=== PATIENT | female | born 1985 | race Caucasian/White ===

== ENCOUNTER 2022-02-21 11:09 | Inpatient (IN) | payer OTHER ==
[2022-02-21] VITALS (10 sets, daily range): BP systolic 121–155; BP diastolic 69–91; PULSE 74–107; TEMP 97.8–98.2
[~2022-02-21] VITALS: Ht 172.7 cm; Wt 105.5 kg
[2022-02-21] MEDS ORDERED: OMEGA-3 1000 MG1 CAP PO (11:31)
[2022-02-21] MEDS ORDERED: PRENATAL TABLET PO (11:31)
[2022-02-21] MEDS ORDERED: ZOLOFT 25MG25 MG PO (11:31)
[2022-02-21] MEDS ORDERED: STOOL SOFTENER100 M2 PO (11:32)
[2022-02-21 12:23] LABS: BASO % 0.3 % (0.0-2.0); EOS # 0.1 K/mm3 (0.0-0.7); GRAN # 10.6 K/mm3 (1.4-6.5); HEMATOCRIT 37.4 % (37.0-47.0); HEMOGLOBIN 12.5 g/dl (12.5-16.0); LYMPH # 1.9 K/mm3 (1.2-3.4); LYMPH % 14.3 % (20.0-51.0); MEAN CELL VOLUME 84 fl (80.0-100.0); MEAN CORPUSCULAR HEMOGLOBIN 28 pg (27-31); MEAN CORPUSCULAR HGB CONC 33 g/dl (33.0-37.0); MONO # 0.7 K/mm3 (0.1-0.6); MONO % 5.4 % (1.7-9.3); PLATELET COUNT 313 K/mm3 (130-400); RED BLOOD COUNT 4.47 M/mm3 (4.10-5.30); REDCELL DISTRIBUTION WIDTH-CV 13.9 % (11.5-14.5)
--- NOTE | 2022-02-21 13:18 | NUR ---
1215 MOVED PT TO LDR 2, PT STTOD AT BEDSISE AND VOICED FEELING MORE PRESSURE SVE AT 1220 AND NOTED 9 AND 0 STTION'DR FUENTES IS IN HOUSE AT NURSES STATION AND AWARE OF PT STATUS
--- NOTE | 2022-02-21 13:20 | NUR ---
SROM THIN MEC NOTED PT IN HANDS AND KNEES AND PUSHING GINA TO ROOM NURSERY TO ROOM [address] FUENTES IN SIDE LYING POSITION 1241 [place] PER GINA WITH 1ST DEGREE LACERATION REPAIRED PER DR FUENTES
--- NOTE | 2022-02-21 14:07 | NUR ---
1130 pt present to l/d with c/o UC since 0800, spouse with pt, denies SROM or bloody show desires low intervention dr garcía was in house and notified, he discussed POC with pt at bedside NST done and reactive, pt off EFM and up to walk, INT placed
[2022-02-22 04:10] VITALS: BP 115/76; PULSE 85; TEMP 98.1
[2022-02-22 08:34] VITALS: BP 134/80; PULSE 77; TEMP 98.7
[2022-02-22] MEDS ORDERED: IBU800 M1 PO (09:47)
[2022-02-22 17:30] VITALS: BP 112/66; PULSE 75; TEMP 97.9
[2022-02-22 19:00] VITALS: BP 131/69; PULSE 71; TEMP 97.8
== END 2022-02-23 15:15 | disposition home or self-care (01) | DRG 807 ==
LOC: LDRO 11:09 → LDR 11:45 → OB 16:32
PROVIDERS: Obstetrics & Gynecology; ADMIT Obstetrics & Gynecology
PROC: 10E0XZZ Delivery of Products of Conception, External Approach (ICD-10-PCS; principal; 2022-02-21)
PROC: 0HQ9XZZ Repair Perineum Skin, External Approach (ICD-10-PCS; 2022-02-21)
DX: O99.344 Other mental disorders complicating childbirth (principal); Z37.0 Single live birth; O70.0 First degree perineal laceration during delivery; O77.0 Labor and delivery complicated by meconium in amniotic fluid; F41.9 Anxiety disorder, unspecified; Z3A.39 39 weeks gestation of pregnancy; Z86.16 Personal history of COVID-19
CPT/HCPCS: J2590

== ENCOUNTER → 2022-02-26 | Outpatient (CLI) | payer OTHER ==
[~2022-02-26] MED LIST: IBU800 M1 PO; OMEGA-3 1000 MG1 CAP PO; PRENATAL TABLET PO; STOOL SOFTENER100 M2 PO; ZOLOFT 25MG25 MG PO
--- NOTE | 2022-02-27 08:42 | NUR ---
Notes from consultation on 02/26/2022: Pt, Arminda "Georgia Elizondoch, presents for outpatient consult with five day old baby boy, Cedric Justin. They are accompanied by her spouse, Lg Justin. Pt contacted this LC for consult to evaluate latch as previous baby did not latch so she pumped and bottle fed. Cedric was born on [birth year] and weighed 9# 0.3oz (4091 gms). He was seen by Dr. Kate on 02/25/22 and reportedly weighed 3636 gms. He was sent for lab work following that appt for bilirubin. At this consult Cedric weighed 8# 2.5oz (3700 gms) and is at 9% wt. loss. Pt works with latching Cedric, and is rather passive, not assisting in getting more areola into his mouth. LC coaches/assists on being more assertive in the cross cradle hold, demonstrates how to express milk to entice him, and with several attempts pt eventually gets him latched better. She states it is not painful. Pt has very large breasts making coordination and maintaining of latch rather difficult, requiring 3 relatched. Cedric also takes lots of stimulation to get interested and open well for latching, likely more significant due to low weight and jaundice. After nursing bilaterally Cedric has a weight gain of 48 gms. Pt reports lower than desired stools, with the last one being the previous day, described as still dark. Four voids so far this day, some uric acid crystals noted. Impression: Possible low milk supply and/or low milk transfer; sleepiness r/t weight loss and jaundice; shallow latching. Verbal report called to Dr. Kate's nurse at [facility]. POC: Because Cedric demonstrated a good weight gain over the last 24 hours, options discussed for management at this time include continue working on deeper latch, ensure 8+ feedings per 24 hours, closely monitor output, pump at least 4 times daily (after ) and feed back via SNS. May supplement more and with formula if desired, advised to use 2 syringes per supplement (48ml). F/U: will call in one day to check in, ThursdayFebruary 28 @ 1300 for follow up outpatient consultation. Questions invited and answered.
== END ==
LOC: LAC 07:30
DX: Z39.1 Encounter for care and examination of lactating mother (principal); Z71.89 Other specified counseling

== ENCOUNTER → 2022-02-28 | Outpatient (CLI) | payer OTHER ==
--- NOTE | 2022-02-28 13:38 | NUR ---
Pt, Arminda Dueñas" Fam presents for follow up consult with two week old baby boy, Cedric Justin. She is accompanied by her spouse, Lg Justin. This family was seen 2 days ago for evaluation and Cedric was at 9% loss from weight. There was some concern about jaundic, and possible low milk supply. They have followed the plan that includes pumping and feeding her EBM to Cedric as available. In the last 48 hours he has had a total of 7 oz EBM by bottle. They tried using SNS but found it difficult to get a good latch and tubing placement. They report Cedric has had 8+ larger, clear voids without urate crystals. He has had 1 large BM daily, and does so while in consult. It is noted to be loose and green with yellow undertones. Today Cedric weighs 8# 5.0oz (3770 gms), a gain of 2.5oz over the last 48 hours. Pt breastfeeds Cedric independantly. He has several relatches with feeding, pt states she hears swallows, but that he is pretty sleepy. After nursing Cedric has a weight gain of 8 gms. Because of his overall weight gain, we decided to finish the feeding at this time since he is sleepy. POC: Continue BF ad jennyfer, pump and supplement as desired/perceived needed. F/U: Weight check in 3 days, January 02 @ 1300. Questions invited and answered.
== END ==
LOC: LAC 13:02
DX: Z39.1 Encounter for care and examination of lactating mother (principal)

== ENCOUNTER → 2022-03-04 | Outpatient (CLI) | payer OTHER ==
--- NOTE | 2022-03-04 14:31 | NUR ---
Pt, Arminda "Inocencia" Sarwat presents for follow up weight check with 11 day old baby boy, Cedric Justin. She is accompanied by her spouse, Lg Justin. Inocencia and family were seen four days ago by this LC and had demonstrated an adequate weight gain with minimal supplementation. He weighed 8# 5oz (3770 gms). weight was 9# 0.3oz (3770 gms). Lowest known weight was 3636 gms on 02/25/22. Today Cedric weighs 8# 4.3oz (3750 gms) for a loss of 20 gms/4 days. He has not been supplemented in that time frame. Pt pumps 1-2 times per 24 hours and reports collecting 30-90ml. Because of unexpected weight loss pt attempts BF here. Cedric is disinterested and does not readily open his mouth despite have feed 2+ hours ago. Eventually with SNS Cedric settles in and nurses consisitently. Pt reports it often takes 15 minutes before she can get him to latch and feedings take an hour. Suck evaluation with gloved finger by this LC. Once he allows proper depth of finger placement he has an effective, drawing suck with proper tongue placement. After nursing Cedric has a gain of 64 gms, 19 from formula and 44 from . He does not latch the second breast so is bottle fed ~20ml formula by bottle. FOB is instructed on bottle nipple placement in Cedric's mouth, and paced feeding. Pt verbalizes that she will start pumping and bottle feeding. Intake guidelines (28oz per 24 hours) as well as pumping guidelines (8x/24 hours) reviewed. Fresh blood noted at umbilicus, [facility] and appt scheduled following this appt with Dr. Bauman for 2:30. POC: pump and bottle feed, using formula to ensure adequate volume intake per day. Pump as discussed. F/U: verbal report re: milk production and feeding progress by end of week, possible wt check in two days or following verbal update. Questions invited and answered.
== END ==
LOC: LAC 13:03
DX: Z39.1 Encounter for care and examination of lactating mother (principal); Z71.89 Other specified counseling

== ENCOUNTER → 2022-03-06 | Outpatient (CLI) | payer OTHER ==
--- NOTE | 2022-03-06 15:29 | NUR ---
Pt, Arminda Fam (Liz) presents to walk-in clinic with 13 day old baby boy, Cedric Justin, for a weight check. This family is being seen on a regular basis for assistance. Please see previous admits for complete history. Cedric was seen by this LC most recently 2 days ago. His weight was 8# 4.3oz ( 3751 gms) which was a loss from the appt 3 days prior. which was 8# 5oz (3770 gms). At that time it was decided to have Inocencia pump and bottle feed to get a clearer picture of her milk supply and ensure Cedric gained weight adequately. Today Cedric weighs 8# 10.9oz (3938 gms) for a 6.6oz gain in 2 days. Pt reports providing Cedric 2-3 oz EBM per feeding and a total of 4oz formula in the last 24 hours. She has collected 19.25oz with her pump so milk supply is not far off his intake needs. Pt will continue pumping and bottle feeding until our next appt on 03/10/22 @ 1500. She will breastfeed a few times daily as well, offering him supplement after. Questions invited and answered.
== END ==
LOC: LAC 14:42
DX: Z39.1 Encounter for care and examination of lactating mother (principal)

== ENCOUNTER → 2022-03-10 | Outpatient (CLI) | payer OTHER ==
--- NOTE | 2022-03-10 15:44 | NUR ---
Pt, Arminda "Inocencia" Fam presents for outpatient consult with 2.5 week old baby boy, Cedric Justin and her spouse Lg Justin, for a follow up BF evaluation. This family has been seen at 4 previous consults because Cedric has not gained weight well, there has been latching difficulties, and concern about low milk supply vs. low milk transfer. Cedric was born on [birth year] and weighed 9#0.3oz (4091 gms). Today he weighs 8# 14.2oz (4084 gms). Previous dates and weights: March 06: 8# 10.9oz (3938 gms) March 04: 8# 4oz (3750 gms)- was advised to pump and bottle due to wt loss. February 28: 8# 5oz (3770 gms) February 27: 8# 2.5oz (3700 gms) After the 03/06 visit the family continued with primarily pumping and bottle feeding. He has been mostly for the last 18 hours. He drinks 2-4oz per feeding and she is able to pump almost 100% of his intake needs, being shy of just 1-2 oz. Today we are evaluating his again. After bilaterally (20min L, 20+10min R)Cedric has a weight gain of 3.2 oz (92 gms). Although his feeding was lengthy his latch, interest, and effort are much better than previous feedings. POC: Combination feedings of 50% breast, 50% bottle and pumping. F/U: Three days at walk in clinic for a weight check. Questions invited and answered.
== END ==
LOC: LAC 14:58
DX: Z39.1 Encounter for care and examination of lactating mother (principal)

== ENCOUNTER → 2022-03-13 | Outpatient (CLI) | payer OTHER ==
--- NOTE | 2022-03-13 15:14 | NUR ---
Pt, Arminda Fam, presents with 3 week old baby boy, Cedric Justin for a weight check. Cedric seen by this LC on 03/10/22 and weighed 8#14.2oz (4048 gms). Today Cedric weighs 9# 3.2oz (4174 gms) Pt continues to Bf and pump and bottle feed as it fits her life. Milk production is adequate so she does not use any formula. Pt plans for another weight check next week. She will continue to BF and pump/bottle as needed. Questions invited and answered.
== END ==
LOC: LAC 14:38
DX: Z39.1 Encounter for care and examination of lactating mother (principal)

== ENCOUNTER → 2022-05-07 | Outpatient (CLI) | payer OTHER | LOC: MC.RAD 14:59 | DX: N63.42 Unspecified lump in left breast, subareolar (principal) ==

== ENCOUNTER → 2022-06-19 | Outpatient (CLI) | payer OTHER | LOC: MC.RAD 08:28 | DX: N63.42 Unspecified lump in left breast, subareolar (principal) ==